=== PATIENT | female | born 1960 | race Caucasian/White ===

== ENCOUNTER 2016-10-15 17:22 | Emergency (ER) | payer BC, OTHER ==
[2016-10-15 17:30] VITALS: BP 158/88; PULSE 90; TEMP 98.1; BMI 23.0
--- NOTE | 2016-10-15 18:38 | PDOC ---
History of Present Illness - General History Source: Patient Exam Limitations: No Limitations - History of Present Illness Initial Comments: 10/15/16 18:33 CC fell on uneven sidewalk yesterday hitting face, both hands, lumbar spine and both knees; no LOC Occurred: reports: yesterday Severity: reports: moderate Pain Location: reports: back, face, lower extremity, upper extremity Method of Injury: Yes: fall Loss of Consciousness: no loss of consciousness <Edson Tapia - Last Filed: 10/15/16 18:33> <Yolanda Reilly - Last Filed: 10/15/16 22:16> - General Chief Complaint: Injury Stated Complaint: FALL/BACK PAIN/LEG PAIN Time Seen by Provider: 10/15/16 17:49 Past History - Past Medical History Asthma: Yes Diabetes: Yes HTN: Yes - Psycho/Social/Smoking Cessation Hx Anxiety: No Suicidal Ideation: No Smoking History: Current every day smoker Number of Cigarettes Smoked Daily: 20 Information on smoking cessation initiated: No Hx Alcohol Use: No Drug/Substance Use Hx: No Substance Use Type: None <Edson Tapia - Last Filed: 10/15/16 18:33> <Yolanda Reilly - Last Filed: 10/15/16 22:16> - Past Medical History Allergies/Adverse Reactions: Allergies Allergy/AdvReac Type Severity Reaction Status Date / Time No Known Allergies Allergy Verified 10/15/16 17:30 Home Medications: Ambulatory Orders Amoxicillin/Potassium Clav [Augmentin 875-125 Tablet] 1 each PO BID #14 tablet 10/15/16 Review of Systems - Review of Systems Constitutional: No: Symptoms Reported, Chills, Fever, Malaise HEENTM: Yes: Other (STS to right upper lip; with abrasion inner lip; no teeth in area) Respiratory: No: Cough Musculoskeletal: Yes: Back Pain, Joint Pain, Joint Swelling, Joint Stiffness. No: Neck Pain Integumentary: Yes: Bruising, Erythema. No: Symptoms Reported Neurological: No: Symptoms reported, Headache, Numbness <Edson Tapia - Last Filed: 10/15/16 18:33> *Physical Exam - Vital Signs Last Vital Signs Temp Pulse Resp BP Pulse Ox 98.1 F 90 20 158/88 97 10/15/16 17:27 10/15/16 17:27 10/15/16 17:27 10/15/16 17:27 10/15/16 17:27 - Physical Exam General Appearance: Yes: Appropriately Dressed HEENT: positive: Other (abrasion upper inner lip with STS, no teeth to area, FROM TMJ) Neck: positive: Supple. negative: Tender, Rigid Respiratory/Chest: positive: Lungs Clear. negative: Chest Tender, Normal Breath Sounds Gastrointestinal/Abdominal: positive: Normal Bowel Sounds. negative: Tender Extremity: positive: Other (tender to right patella; tender both hands, FROM wrists; tender midline L4-L4, no deformith) <Edson Tapia - Last Filed: 10/15/16 18:33> - Vital Signs Last Vital Signs Temp Pulse Resp BP Pulse Ox 98.1 F 90 20 158/88 97 10/15/16 17:27 10/15/16 17:27 10/15/16 17:27 10/15/16 17:27 10/15/16 17:27 <Yolanda Reilly - Last Filed: 10/15/16 22:16> ED Treatment Course - LABORATORY CBC & Chemistry Diagram: 10/15/16 18:20 - RADIOLOGY Radiology Studies Ordered: Category Date Time Status HAND- LEFT [RAD] Stat Radiology 10/15/16 18:16 Ordered HAND- RIGHT [RAD] Stat Radiology 10/15/16 18:16 Ordered KNEE 2 POS-RIGHT [RAD] Stat Radiology 10/15/16 18:16 Ordered SPINE-LUMBAR SACRAL [RAD] Stat Radiology 10/15/16 18:16 Ordered <Edson Tapia - Last Filed: 10/15/16 18:33> - LABORATORY CBC & Chemistry Diagram: 10/15/16 18:20 - ADDITIONAL ORDERS Additional order review: Laboratory Results 10/15/16 18:20 Sodium 142 Potassium 3.8 Chloride 104 Carbon Dioxide 27 Anion Gap 11 BUN 20 H Creatinine 1.0 Random Glucose 295 H Calcium 9.2 - Medications Given in the ED: ED Medications Discontinued Medications Generic Name Dose Route Start Last Admin Trade Name Freq PRN Reason Stop Dose Admin Acetaminophen/Codeine Phosphate 1 tab 10/15/16 19:00 10/15/16 19:04 Tylenol # 3 - PO 10/15/16 19:01 1 tab ONCE ONE Administration <Yolanda Reilly - Last Filed: 10/15/16 22:16> *DC/Admit/Observation/Transfer <Edson Tapia - Last Filed: 10/15/16 18:33> <Yolanda Reilly - Last Filed: 10/15/16 22:16> Diagnosis at time of Disposition: Laceration of mouth, internal Qualifiers: Encounter type: initial encounter Qualified Code(s): S01.512A - Laceration without foreign body of oral cavity, initial encounter - Discharge Dispostion Disposition: HOME Condition at time of disposition: Good - Prescriptions Prescriptions: Amoxicillin/Potassium Clav [Augmentin 875-125 Tablet] 1 each PO BID #14 tablet - Patient Instructions Additional Instructions: follow with your primary care doctor take the antibitoics as prescribed
[2016-10-15 18:48] LABS: CALCIUM 9.2 mg/dL (8.5-10.1); COCKROFT - GAULT 56.6695
[2016-10-15] MEDS ORDERED: ACETAMINOPHEN WITH CODEINE 300MG/30MG TABLET PO ONE (19:00)
[2016-10-15] MEDS ORDERED: ACETAMINOPHEN WITH CODEINE 300MG/30MG TABLET ONE (19:02)
== END 2016-10-15 22:17 | disposition home or self-care (01) ==
LOC: JERFT 17:22
DX: S01.512A Laceration without foreign body of oral cavity, initial encounter (principal); W18.39XA Other fall on same level, initial encounter; Y93.01 Activity, walking, marching and hiking; Y92.480 Sidewalk as the place of occurrence of the external cause; Y99.8 Other external cause status
CPT/HCPCS: 36415; 72100-TC; 73130-TC-LT; 73130-TC-RT; 73560-TC-RT; 80048; 99281-25

== ENCOUNTER 2017-08-07 09:05 | Emergency (ER) | payer BC, OTHER ==
[2017-08-07 09:31] VITALS: BMI 23.8
--- NOTE | 2017-08-07 10:03 | PDOC ---
History of Present Illness <Fernando Valdez - Last Filed: 08/07/17 11:08> - History of Present Illness Initial Comments: 08/07/17 10:03 57 yo F with h/o NIDDM, Chronic neuropathic pain, and asthma who presents with chest pain. For the past 2 days pt. reports sharp left sided chest pain at rest for the past 2 days occurring intermittently with no eliciting factors and resolving after seconds. Denies pain Pt. also complains of 2 days of retrosternal burning pain worse with supine positioning. Denies neck, jaw, back pain, but reports L sided axillary pain similiar to pain with prior VZV infection. Denies N/V, F/C, palpitations, José, SOB, swelling, lighteheadedness, weakness, LOC. Denies CAD/KS, stent placement, CABG. Does not recall previous stress test. Does not follow with cardiology. Tobacco use for 40+ years ( 1/2 - 1 ppd). <Yaw Salter - Last Filed: 08/07/17 16:20> - General Chief Complaint: Chest Pain Stated Complaint: CHEST PAIN Time Seen by Provider: 08/07/17 09:54 Past History <Fernando Valdez - Last Filed: 08/07/17 11:08> - Past Medical History Asthma: Yes COPD: No Diabetes: Yes (IDDM) HTN: Yes - Immunization History Immunization Up to Date: Yes - Suicide/Smoking/Psychosocial Hx Smoking History: Current every day smoker Number of Cigarettes Smoked Daily: 20 Information on smoking cessation initiated: No Hx Alcohol Use: No Drug/Substance Use Hx: No Substance Use Type: None <Yaw Salter - Last Filed: 08/07/17 16:20> - Past Medical History Allergies/Adverse Reactions: Allergies Allergy/AdvReac Type Severity Reaction Status Date / Time No Known Allergies Allergy Verified 08/07/17 09:26 Home Medications: Ambulatory Orders Amlodipine Besylate 10 mg PO DAILY 08/07/17 Atorvastatin Calcium 40 mg PO HS 08/07/17 Dapagliflozin Propanediol [Farxiga] 5 mg PO DAILY 08/07/17 Glimepiride 4 mg PO BID 08/07/17 Insulin Aspart Prot/Insuln Asp [Novolog Mix 70-30 Vial] 15 unit SQ BID 08/07/17 Losartan Potassium 50 mg PO DAILY 08/07/17 Metformin HCl 500 mg PO BID 08/07/17 Nebivolol HCl [Bystolic] 10 mg PO DAILY 08/07/17 Review of Systems - Review of Systems Comments:: 08/07/17 10:03 GENERAL/CONSTITUTIONAL: No fever or chills. No weakness. HEAD, EYES, EARS, NOSE AND THROAT: No change in vision. No ear pain or discharge. No sore throat.- CARDIOVASCULAR: + chest pain. No shortness of breath RESPIRATORY: No cough, wheezing, or hemoptysis. GASTROINTESTINAL: No nausea, vomiting, diarrhea or constipation. GENITOURINARY: No dysuria, frequency, or change in urination. MUSCULOSKELETAL: No joint or muscle swelling or pain. No neck or back pain. SKIN: No rash NEUROLOGIC: No headache, vertigo, loss of consciousness, or change in strength/ sensation. ENDOCRINE: No increased thirst. No abnormal weight change HEMATOLOGIC/LYMPHATIC: No anemia, easy bleeding, or history of blood clots. ALLERGIC/IMMUNOLOGIC: No hives or skin allergy. <Yaw Salter - Last Filed: 08/07/17 16:20> *Physical Exam - Vital Signs Last Vital Signs Temp Pulse Resp BP Pulse Ox 98.4 F 83 15 145/77 99 08/07/17 09:27 08/07/17 09:27 08/07/17 09:27 08/07/17 09:27 08/07/17 10:10 <Fernando Valdez - Last Filed: 08/07/17 11:08> - Vital Signs Last Vital Signs Temp Pulse Resp BP Pulse Ox 98.4 F 83 15 145/77 95 08/07/17 09:27 08/07/17 09:27 08/07/17 09:27 08/07/17 09:27 08/07/17 09:27 - Physical Exam Comments: 08/07/17 10:03 GENERAL: Awake, alert, and fully oriented, in no acute distress HEAD: No signs of trauma, normocephalic, atraumatic EYES: PERRLA, EOMI, sclera anicteric, conjunctiva clear ENT: Hearing grossly normal, nares patent, oropharynx clear without exudates. Moist mucosa NECK: Normal ROM, supple, no lymphadenopathy, JVD, or masses LUNGS: No distress, speaks full sentences, clear to auscultation bilaterally HEART: Regular rate and rhythm, normal S1 and S2, no murmurs, rubs or gallops, peripheral pulses normal and equal bilaterally. ABDOMEN: Soft, + Epigastria ttp. Normoactive bowel sounds. No guarding, no rebound. No masses. Neg CVA ttp. EXTREMITIES : Normal inspection, Normal range of motion, no edema. No clubbing or cyanosis. SKIN: Warm, Dry, normal turgor, no rashes or lesions noted. <Yaw Salter - Last Filed: 08/07/17 16:20> Heart Score/ECG Review - History History: Slightly suspicious - Electrocardiogram EKG: Normal - Age Age: 45-65 - Risk Factors Risk Factors Heart Score: Yes Hx Diabetes, Yes Smoking History, Yes Positive family hx of cardiac disease Based on the list above the patient has:: >/=3 risk factors or Hx atherosclerotic disease - Troponin Troponin: </= normal limit - Score Heart Score - Total: 3 <Fernando Valdez - Last Filed: 08/07/17 11:08> ED Treatment Course - LABORATORY CBC & Chemistry Diagram: 08/07/17 10:30 08/07/17 10:30 - ADDITIONAL ORDERS Additional order review: 08/07/17 10:30 RBC 5.22 H MCV 84.8 MCHC 32.5 RDW 13.8 MPV 11.9 H Neutrophils % 73.2 Lymphocytes % 19.5 Monocytes % 5.9 Eosinophils % 1.0 Basophils % 0.4 - Medications Given in the ED: ED Medications Discontinued Medications Generic Name Dose Route Start Last Admin Trade Name Freq PRN Reason Stop Dose Admin Aspirin 325 mg 08/07/17 10:33 08/07/17 10:49 Ecotrin - PO 08/07/17 10:34 325 mg ONCE ONE Administration Famotidine 20 mg in 12 mls @ 144 mls/hr 08/07/17 10:34 08/07/17 10:49 Pepcid 20 Mg/12 Ml Push IVPUSH 08/07/17 10:38 144 mls/hr ONCE ONE Administration <Fernando Valdez - Last Filed: 08/07/17 11:08> - LABORATORY CBC & Chemistry Diagram: 08/07/17 10:30 08/07/17 10:30 <Yaw Salter - Last Filed: 08/07/17 16:20> Medical Decision Making - Medical Decision Making 08/07/17 10:53 57 yo F with h/o NIDDM, Chronic neuropathic pain, and asthma who presents with sharp., non pleuritic, left sided chest pain at rest for the past 2 days occurring intermittently with no eliciting factors and resolving after seconds.Also reports 2 days of retrosternal burning pain worse with supine positioning. Denies neck, jaw, back pain, N/V, F/C, palpitations, José, SOB, swelling, lighteheadedness, weakness, LOC. Denies CAD/KS, stent placement, CABG. Does not recall previous stress test. Does not follow with cardiology. Tobacco use for 40+ years ( 1/2 - 1 ppd). Physical exam with epigastric ttp. Hemodynamically stable. Patient atypical chest pain concerning for ACS/KS given risk factors and lack of cardiology f/u. ED Course: CBC, CMP, Lipase, Cardiac Profile UA CXR, EKG 08/07/17 10:57 ASA 325 mg, Pepcid 20 IV 08/07/17 11:09 EKG: NSR with absent RONAK, STD, or TWI. Normal axis and normal interval duration. 08/07/17 11:59 WBC: 12.3 08/07/17 12:30 CMP: unremarkable 08/07/17 13:52 Trop: Neg Heart score 3. 08/07/17 15:21 CXR: No acute cardiopulm pathology 08/07/17 16:12 Repeat trop: Neg Patient is stable and denies chest pain. Return precautions and follow up discussed. <Yaw Salter - Last Filed: 08/07/17 16:20> *DC/Admit/Observation/Transfer <Fernando Valdez - Last Filed: 08/07/17 11:08> - Attestations Physician Attestion: 08/07/17 15:22 I attest to the information provided in this note. <Yaw Salter - Last Filed: 08/07/17 16:20> Diagnosis at time of Disposition: Chest pain Qualifiers: Chest pain type: unspecified Qualified Code(s): R07.9 - Chest pain, unspecified - Discharge Dispostion Condition at time of disposition: Stable - Referrals Referrals: Shawn Jean MD [Primary Care Provider] - Leonardo Brady MD [Staff Physician] - - Patient Instructions Printed Discharge Instructions: DI for Atypical Chest Pain Additional Instructions: Please return to the emergency department with any new or worsening symptoms or concerns. Please follow up with your cane weigher within one week. - Post Discharge Activity
[2017-08-07] MEDS ORDERED: ASPIRIN 325 MG ENTERIC COATED TABLET (FP) PO ONE (10:33)
[2017-08-07] MEDS ORDERED: FAMOTIDINE IV 20 MG/12 ML VIAL IVPUSH ONE (10:34)
[2017-08-07 10:45] LABS: BASO % 0.4 % (0-2.0); HEMATOCRIT 44.3 % (32.4-45.2); HEMOGLOBIN 14.4 GM/dL (10.7-15.3); LYMPH % 19.5 % (8-40); MCH 27.6 pg (25.7-33.7); MCHC 32.5 g/dl (32.0-36.0); MEAN CELL VOLUME 84.8 fl (80-96); MEAN PLT VOLUME 11.9 fl (7.5-11.1); MONO % 5.9 % (3.8-10.2); NEUT % 73.2 % (42.8-82.8); PLATELET COUNT 219 K/MM3 (134-434); RBC 5.22 M/mm3 (3.60-5.2); RDW 13.8 % (11.6-15.6); WHITE BLOOD COUNT 12.3 K/mm3 (4.0-10.0)
[2017-08-07] MEDS ORDERED: ASPIRIN 325 MG TABLET ONE (10:46)
[2017-08-07] MEDS ORDERED: FAMOTIDINE 20 MG/50 ML IVPB 20 MG/50 ML MG IVPB ONE (10:46)
--- NOTE | 2017-08-07 11:07 | PDOC ---
Attending Attestation - Resident Resident Name: Yaw Salter - ED Attending Attestation I have performed the following: I have examined & evaluated the patient, The case was reviewed & discussed with the resident, I agree w/resident's findings & plan, Exceptions are as noted - HPI HPI: 08/07/17 11:05 57y F hx of dm, neuropathic pain presents with episodic chest pain that she describes as sharp and burning, lef sided, nonpleuritic cp at rest lasting for seconds, at the same time, epigastric that is also sharp and burning, that is worse with laying down. No associated n/v, sob, berg, f/c, cough, hemptysis, palpitations, leg swelling, abd pain, n/v, diarrhea, dysuria. No rashes noted. pain is not exertional (typically starts when she is at rest as when she was watching TV last night). Pt notes this pain feels similar to when she was diagnosed with zoster in the past although there is no rash. Pt was formerly on lyrica but was d/cd due to insurance issues and then was started on gabapentin approx 2 weeks ago. Pt has also taken tramadol and ibuporfen at home with mild releieve of pain. +smoking 1/2 pack/day for 40 years GENERAL: The patient is awake, alert, and fully oriented, Nontoxic - in no acute distress. HEAD: Normocephalic, atraumatic. EYES: extraocular movements intact, sclera anicteric, conjunctiva clear. ENT: Normal voice, Moist mucous membranes. NECK: Normal range of motion, supple LUNGS: Breath sounds equal, clear to auscultation bilaterally. No wheezes, no rhonchi, no rales. HEART: Regular rate and rhythm, normal S1 and S2 without murmur, rub or gallop. ABDOMEN: Soft, mild epigastric tenderness, normoactive bowel sounds. No guarding, no rebound. . No CVA tenderness EXTREMITIES: Normal range of motion, no edema. No clubbing or cyanosis. No cords, erythema, or tenderness. NEUROLOGICAL: No facial assymetry, Normal speech, PSYCH: Normal mood, normal affect. SKIN: Warm, Dry, normal turgor, small red papules throughout torso (pt notes this is chronic, and has had it when she was a teenager) unclear cause of her pain - will r/o cardiac etiology with trops/egk ?neuropathic -? nerve inpingement? will give tramadol will reassess and if everything neg here willrefer to PMD and neurologist - Physicial Exam PE: 08/09/17 08:21 see above - Medical Decision Making 08/07/17 16:21 trop neg x 2 pt feeling improved will have her see her PMD, cards, and her neurologist
[2017-08-07 11:12] LABS: ALBUMIN 4.2 g/dl (3.4-5.0); ALK PHOS 137 U/L (45-117); ANION GAP 10 (8-16); BILIRUBIN,TOTAL 0.4 mg/dL (0.2-1.0); BLOOD UREA NITROGEN 19 mg/dL (7-18); CALCIUM 9.3 mg/dL (8.5-10.1); CHLORIDE 105 mmol/L (98-107); CO2 25 mmol/L (21-32); CREATININE 0.7 mg/dL (0.55-1.02); GLUCOSE,RANDOM 218 mg/dL (74-106); POTASSIUM 3.9 mmol/L (3.5-5.1); SGOT/AST 20 U/L (15-37); SGPT/ALT 35 U/L (12-78); SODIUM 140 mmol/L (136-145); TOT PROT 7.5 g/dl (6.4-8.2)
[2017-08-07 11:13] LABS: URINE APPEARANCE CLEAR; URINE BILIRUBIN NEGATIVE (NEGATIVE); URINE BLOOD NEGATIVE (NEGATIVE); URINE COLOR YELLOW; URINE GLUCOSE (UA) 3+ (NEGATIVE); URINE KETONE TRACE (NEGATIVE); URINE LEUK ESTERASE TRACE (NEGATIVE); URINE NITRITE NEGATIVE (NEGATIVE); URINE PROTEIN NEGATIVE (NEGATIVE); URINE UROBILINOGEN NEGATIVE mg/dL (0.2-1.0)
[2017-08-07 11:20] LABS: EPI CELLS RARE /HPF (FEW); URINE BACTERIA RARE /hpf (NONE SEEN)
[2017-08-07 11:23] LABS: INR 0.94 (0.82-1.09); PROTHROMBIN TIME (PATIENT) 10.6 SEC (9.98-11.88)
--- NOTE | 2017-08-07 11:53 | EKG ---
Test Reason : Blood Pressure : / mmHG Vent. Rate : 086 BPM Atrial Rate : 086 BPM P-R Int : 154 ms QRS Dur : 080 ms QT Int : 338 ms P-R-T Axes : 068 056 046 degrees QTc Int : 404 ms NORMAL SINUS RHYTHM POSSIBLE LEFT ATRIAL ENLARGEMENT BORDERLINE ECG WHEN COMPARED WITH ECG OF 15-JUN-2007 18:19, NO SIGNIFICANT CHANGE WAS FOUND Confirmed by MD AASHISH, YUNG ([id number]) on 08/07/2017 11:52:33 AM Referred By: Confirmed By:YUNG ZENDEJAS MD
[2017-08-07] MEDS ORDERED: traMADol HCL 50 MG TABLET PO ONE (13:31)
[2017-08-07] MEDS ORDERED: traMADol HCL 50 MG TABLET ONE (13:49)
[2017-08-07] MEDS ORDERED: MAG HYDROX/AL HYDROX/SIMETH 355 ML ORAL.SUSP PO ONE (13:52)
[2017-08-07] MEDS ORDERED: MAG HYDROX/AL HYDROX/SIMETH 30 ML UNIT-DOSE CUP ONE (13:53)
[2017-08-07 17:10] VITALS: BP 145/70; PULSE 85; TEMP 98.1
== END 2017-08-07 17:10 | disposition home or self-care (01) ==
LOC: JER 09:05
PROC: 3E033GC Introduction of Other Therapeutic Substance into Peripheral Vein, Percutaneous Approach (ICD-10-PCS; principal; 2017-08-07)
DX: R07.9 Chest pain, unspecified (principal); I10 Essential (primary) hypertension; E11.9 Type 2 diabetes mellitus without complications; Z79.4 Long term (current) use of insulin; Z79.84 Long term (current) use of oral hypoglycemic drugs; F17.210 Nicotine dependence, cigarettes, uncomplicated
CPT/HCPCS: 36415; 71045-TC; 80053; 81003; 81015; 82550; 83690; 84484; 85025; 85610; 93005; 93010; 96374; 99285-25

== ENCOUNTER 2018-02-19 06:44 | Day surgery (SDC) | payer OTHER ==
[2018-02-18 17:26] VITALS: BMI 22.4
[2018-02-19] MEDS ORDERED: BUPIVACAINE HCL/PF 0.25% (2.5MG/ML) 10 ML VIAL ONE (07:35)
[2018-02-19] MEDS ORDERED: BETAMET ACET/BETAMET NA PH 30 MG/5 ML VIAL ONE (07:35)
[2018-02-19] MEDS ORDERED: LIDOCAINE HCL 1%, 10 MG/ML (20ML VIAL) ONE (07:35)
[2018-02-19] MEDS ORDERED: MIDAZOLAM HCL 2 MG/2 ML SINGLE DOSE VIAL ONE (09:23)
[2018-02-19] MEDS ORDERED: BETAMET ACET/BETAMET NA PH 30 MG/5 ML VIAL IJ ONE ×2 (09:36)
[2018-02-19] MEDS ORDERED: IOHEXOL 180 MG/1 ML ML IJ ONE ×2 (09:36)
[2018-02-19] MEDS ORDERED: LIDOCAINE HCL 1% PRESERVATIVE FREE - 30ML VIAL IJ ONE (09:36)
[2018-02-19] MEDS ORDERED: BUPIVACAINE HCL/PF 0.25% (2.5MG/ML) 10 ML VIAL IJ ONE ×2 (09:36)
[2018-02-19] MEDS ORDERED: ACETAMINOPHEN 325 MG TABLET (FP) ONE (10:17)
[2018-02-19] MEDS ORDERED: ACETAMINOPHEN 325 MG TABLET (FP) PO ONE (10:18)
[2018-02-19 12:46] VITALS: PULSE 70
[2018-02-19 18:11] VITALS: TEMP 98
[2018-02-19 18:15] VITALS: BP 125/70
--- NOTE | 2018-02-25 19:43 | PROC ---
Procedure Note Procedure: Date of service:02/19/2018 Preoperative Diagnosis: Low back pain and lumbar radiculopathy on Left Postoperative Diagnosis: Same Procedure Performed: Lumbar Epidural Steroid Injection (LESI) on Left L4-5 with dye under Fluoroscopy Anesthesia: Local / MAC Anesthesiologist: Procedure: I discussed with the patient in detail about the risks, benefits, and alternatives to treatment not only limited to infection, headache, numbness , weakness, and injury to nerves, blood vessels and muscles. The patient understood, agreed and signed the written consent. The patient was placed in the prone position with the head, abdomen and legs supported with the pillows. The lumbosacral area was prepped and draped with Betadine times three in a sterile fashion. Lumbar vertebrae were identified under the C-arm. At L4-5 level on the Left side, 3 ml of 1 % Lidocaine was infiltrated into the skin and subcutaneous tissue. A 3 inch, #20 gauge Tuohy needle was advanced to the epidural space with loss of resistance technique under fluoroscopic guidance. Aspiration was negative for cerebrospinal fluid and blood. 2ml of Omnipaque ( radio-opaque dye) was injected to confirm the tip of the needle into epidural space and spread of dye. There was no CSF or vascular spread. The spread of dye was noted cranially and caudally on epidurogram. Aspiration was done again which was negative. A solution of 2.5 ml of Celestone, 2.5 ml of 0.25% Marcaine and a total of 5 ml was injected slowly. While Tuohy needle was withdrawn 2.0 ml of 1 % Lidocaine was infiltrated. Bleeding was checked. Betadine was wiped off. A sterile bandage was placed. The patient tolerated the procedure well. There were no immediate complications. The patient was transferred to the recovery room. The patient was observed for some time and discharged as per ASU criteria. The patient was told to apply ice at the injection site. Follow up appointment was given and also call my office at [phone]. If there is any problem, call my office or report to Emergency Room. Gerardo Harman M.D.
== END 2018-02-19 13:30 | disposition home or self-care (01) ==
LOC: JASU-SURG 06:44
PROVIDERS: ATTEND Physical Medicine & Rehabilitation
PROC: 3E0R33Z Introduction of Anti-inflammatory into Spinal Canal, Percutaneous Approach (ICD-10-PCS; 2018-02-19)
PROC: B01BYZZ Fluoroscopy of Spinal Cord using Other Contrast (ICD-10-PCS; 2018-02-19)
PROC: 3E0R3BZ Introduction of Anesthetic Agent into Spinal Canal, Percutaneous Approach (ICD-10-PCS; principal; 2018-02-19 08:30)
DX: M54.16 Radiculopathy, lumbar region (principal); M54.5 Low back pain; E11.9 Type 2 diabetes mellitus without complications; Z79.84 Long term (current) use of oral hypoglycemic drugs; I10 Essential (primary) hypertension
CPT/HCPCS: 76000-TC-FY; 82962

== ENCOUNTER 2019-06-16 13:03 | Emergency (ER) | payer OTHER ==
[2019-06-16 13:13] VITALS: BP 160/77; PULSE 86; TEMP 97.7; BMI 26.4
--- NOTE | 2019-06-16 14:24 | PDOC ---
History of Present Illness - General Chief Complaint: Blurry Vision Stated Complaint: BLURRY/DOUBLE VISION Time Seen by Provider: 06/16/19 14:00 - History of Present Illness Initial Comments: Ashanti Johnson is a 59yo woman with a PMH of IDDM, HTN, HLD who presents with double vision and blurry vision since yesterday, also reporting right frontal headache since yesterday evening. She says that she did not think much of the blurry or double vision when it started in the afternoon yesterday as she recently saw an instrumentation controls engineer for her diabetic eye exam about 2 weeks ago, and she was told everything was fine. However, she was having difficulty watching TV due to double vision, and she developed a right frontal headache, around her right eye, in the evening yesterday. She states that the headache worsened today. When she had no improvement in her vision, she decided to come for evaluation. Ms Johnson denies any fevers/chills, focal weakness, numbness, LOC, head injury, difficulty speaking, confusion/AMS, changes in hearing, or other recent neurological symptoms. She reports peripheral neuropathy due to her diabetes, but this is unchanged. She wears reading glasses at baseline and is unsure whether her vision has changed in either eye. Past History - Past Medical History Allergies/Adverse Reactions: Allergies Allergy/AdvReac Type Severity Reaction Status Date / Time No Known Allergies Allergy Verified 06/16/19 13:14 Home Medications: Ambulatory Orders Amlodipine Besylate 10 mg PO DAILY 08/07/17 Atorvastatin Calcium 40 mg PO DAILY 08/07/17 Glimepiride 4 mg PO BID 08/07/17 Losartan Potassium 50 mg PO DAILY 08/07/17 metFORMIN HCL [Metformin HCl] 500 mg PO BID 08/07/17 Baclofen 10 mg PO BID 02/18/18 Cyclobenzaprine HCl [Flexeril -] 10 mg PO BID 02/18/18 Insulin Aspart Prot/Insuln Asp [Novolog Mix 70-30 Flexpen Syrn] 30 unit SQ HS Pregabalin [Lyrica] 150 mg PO TID 02/18/18 Anemia: No Asthma: Yes Cancer: No Cardiac Disorders: No CVA: No COPD: No CHF: No Dementia: No Diabetes: Yes (IDDM) GI Disorders: No Disorders: No HTN: Yes Hypercholesterolemia: No Liver Disease: No Seizures: No Thyroid Disease: No - Immunization History Immunization Up to Date: Yes - Psycho Social/Smoking Cessation Hx Smoking History: Current some day smoker Number of Cigarettes Smoked Daily: 20 Information on smoking cessation initiated: No 'Breaking Loose' booklet given: 02/18/18 Hx Alcohol Use: No Drug/Substance Use Hx: No Substance Use Type: None Review of Systems - Review of Systems Comments:: General: No fevers, no chills, no weight or appetite change, no malaise HEENT: See HPI. No changes in hearing, no congestion, no sore throat CV: No chest pain, no palpitations, no LE edema Pulm: No SOB, no cough, no wheezing GI: No nausea or vomiting, no change in bowel habits, no melena : No frequency, no urgency, no dysuria Musc: No back pain, no joint swelling, no recent injury Skin: No rash, no lesions, no erythema Endo: No excessive thirst, no heat/cold intolerance Heme: No unusual bruising or bleeding, no swollen glands Neuro: No syncope, no numbness/tingling, no focal weakness Vasc: No claudication Psych: No recent change in mood, no SI or HI *Physical Exam - Vital Signs Last Vital Signs Temp Pulse Resp BP Pulse Ox 97.7 F 86 20 160/77 99 06/16/19 13:09 06/16/19 13:09 06/16/19 13:09 06/16/19 13:09 06/16/19 13:09 - Physical Exam General: Comfortable, no acute distress HEENT: PERRL, right eye does not move right of midline, MMM, voice normal, normal neck ROM Cards: RRR, no murmur appreciated Pulm: Comfortable on room air, clear to auscultation bilaterally Abd: Soft, nontender, nondistended Ext: Atraumatic. No LE edema. ROM intact. Strength 5/5 and equal bilaterally Vasc: Extremities WWP. Neuro: A&Ox3, face symmetric, rt eye does not move right/temporal to midline, normal speech, motor/sensory grossly intact and symmetric Psych: Mood appropriate to situation ED Treatment Course - LABORATORY CBC & Chemistry Diagram: 06/16/19 14:50 06/16/19 14:50 Medical Decision Making - Medical Decision Making 06/16/19 14:22 Ashanti Johnson is a 59yo woman with a PMH of poorly controlled IDDM, HTN, HLD who presents with double vision and blurry vision since yesterday, also reporting right frontal headache since yesterday evening. - Isolated CN6 palsy vs CVA. Has been 24 hours, no code hedrick - No red flag symptoms including fever, additional focal neuro deficits, vomiting - Stroke workup - Neuro consult after CT head completed. May need additional evaluation or imaging 06/16/19 15:46 - Acetaminophen for GOODWIN 06/16/19 16:29 - CT w/ moderate periventricular microvascular changes. No infarct or acute abnormalities noted - Will talk to admitting physician, neurology regarding admission vs outpatient follow up 06/16/19 16:34 - Patient requesting Dr Franks for neurology 06/16/19 17:18 - Spoke to Dr Franks. Pt may follow up as an outpatient. Should see her PMD for improved glycemic control - Pt updated. Eye patch placed over right eye. Pt has an ophthalmology appointment on Sunday. Will call neuro tomorrow to schedule appointment. Strongly advised to make an appointment with her primary doctor to discuss her DM meds. Discussed with Dr Nathan Rodriguez PGY2 Discharge - Discharge Information Problems reviewed: Yes Clinical Impression/Diagnosis: Sixth [abducent] nerve palsy, right eye Condition: Stable Disposition: HOME - Admission No - Follow up/Referral Referrals: Dereck Franks MD [Staff Physician] - Shawn Jean MD [Primary Care Provider] - - Patient Discharge Instructions Patient Printed Discharge Instructions: DI for Double Vision Additional Instructions: you should follow up with DR Franks, nuerologist. call to schedule appointment to be seen at the earliest available. see referral information for phone number and call to schedule. you should wear the eye patch. until you follow up . - Post Discharge Activity
[2019-06-16] MEDS ORDERED: SODIUM CHLORIDE 1,000 ML IV SCH (14:45)
[2019-06-16] MEDS ORDERED: ACETAMINOPHEN 1000 MG/100 ML VIAL (NON FORMULARY) IVPB ONE (15:12)
[2019-06-16] MEDS ORDERED: ACETAMINOPHEN INJECTION 100 ML IVPB ONE (15:16)
[2019-06-16 15:24] LABS: BASO % 0.4 % (0-2.0); EOS % 1.3 % (0-4.5); HEMATOCRIT 43.3 % (32.4-45.2); HEMOGLOBIN 14.1 GM/dL (10.7-15.3); LYMPH % 19.4 % (8-40); MCHC 32.4 g/dl (32.0-36.0); MEAN CELL VOLUME 86.3 fl (80-96); MEAN PLT VOLUME 11.8 fl (7.5-11.1); MONO % 6.7 % (3.8-10.2); NEUT % 72.2 % (42.8-82.8); PLATELET COUNT 223 K/MM3 (134-434); RBC 5.02 M/mm3 (3.60-5.2); RDW 14.8 % (11.6-15.6); WHITE BLOOD COUNT 12.4 K/mm3 (4.0-10.0)
[2019-06-16 15:54] LABS: ALBUMIN 3.7 g/dl (3.4-5.0); ALK PHOS 114 U/L (45-117); ANION GAP 10 MMOL/L (8-16); BILIRUBIN,TOTAL 0.4 mg/dL (0.2-1); BLOOD UREA NITROGEN 17.6 mg/dL (7-18); CALCIUM 10.2 mg/dL (8.5-10.1); CHLORIDE 105 mmol/L (98-107); CO2 27 mmol/L (21-32); CREATININE 0.7 mg/dL (0.55-1.3); GLUCOSE,RANDOM 174 mg/dL (74-106); POTASSIUM 4.3 mmol/L (3.5-5.1); SGOT/AST 23 U/L (15-37); SGPT/ALT 34 U/L (13-61); SODIUM 143 mmol/L (136-145); TOT PROT 7.3 g/dl (6.4-8.2)
[2019-06-16 15:55] LABS: INR 0.92 (0.83-1.09); PROTHROMBIN TIME (PATIENT) 10.8 SEC (9.7-13.0)
[2019-06-16 15:58] LABS: ACTIVATED PTT 33.3 SECONDS (25.2-36.5)
[2019-06-16 16:36] LABS: HDL CHOLESTEROL 36 mg/dL (40-60); LDL CHOLESTEROL (ONLY SJRH) 87 mg/dL (5-100); TRIGLYCERIDES 325 mg/dL (0-150)
--- NOTE | 2019-06-16 17:10 | PDOC ---
Attending Attestation - Resident Resident Name: OsitolindaAleja - ED Attending Attestation I have performed the following: I have examined & evaluated the patient, The case was reviewed & discussed with the resident, I agree w/resident's findings & plan, Exceptions are as noted - HPI HPI: 06/16/19 17:06 59-year-old female history of COPD tobacco use hypertension hyperlipidemia diabetes peripheral neuropathy here today complaining of blurry vision and diplopia. Patient states symptoms started yesterday she states it seems to be blurry in the left eye however she does have occasional diplopia is also had intermittent headache in the right frontal region. Did take some Tylenol at home which relieved her symptoms denies any fevers chills no nausea no vomiting no vertigo. No focal weakness numbness or tingling that is new however she does have chronic toe numbness - Physicial Exam PE: 06/16/19 17:07 Awake alert no acute distress heart is regular without murmurs rubs or gallops lungs are clear bilaterally abdomen soft nontender extremities are warm well perfused. Patient has 5 out of 5 bilateral upper and lower extremity strength strength. Sensation is intact grossly to light touch throughout. Cranial nerves II through XII are intact except for the right lateral rectus cranial nerve which shows a palsy when looking to the right. Visual visual gonzales are intact speech is clear - Medical Decision Making 06/16/19 17:09 59-year-old female history of COPD hypertension hyperlipidemia diabetes peripheral neuropathy here with right lateral rectus palsy. Differential includes mass, stroke, peripheral neuropathy. Plan CT head CBC CMP. CT head is negative discussed with Dr. Franks as the patient requesting a new neurologist states he will see the patient as an outpatient within the week recommended a patch over the bad eye to help with diplopia labs are otherwise unremarkable discharged home Heart Score/ECG Review #1 General ECG Interpretation: Sinus Rhythm, Normal Rate (77), Normal Intervals, No acute ischemic changes
--- NOTE | 2019-06-17 09:07 | EKG ---
Test Reason : Blood Pressure : / mmHG Vent. Rate : 077 BPM Atrial Rate : 077 BPM P-R Int : 160 ms QRS Dur : 072 ms QT Int : 360 ms P-R-T Axes : 074 064 064 degrees QTc Int : 407 ms NORMAL SINUS RHYTHM NORMAL ECG WHEN COMPARED WITH ECG OF 07-AUG-2017 09:17, NO SIGNIFICANT CHANGE WAS FOUND Confirmed by Eulalio Ramirez MD ([id number]) on 06/17/2019 9:07:07 AM Referred By: Confirmed By:Eulalio Ramirez MD
== END 2019-06-16 18:26 | disposition home or self-care (01) ==
LOC: JER 13:03
PROC: 3E033NZ Introduction of Analgesics, Hypnotics, Sedatives into Peripheral Vein, Percutaneous Approach (ICD-10-PCS; principal; 2019-06-16)
DX: H49.20 Sixth [abducent] nerve palsy, unspecified eye (principal); E10.9 Type 1 diabetes mellitus without complications; Z79.4 Long term (current) use of insulin; I10 Essential (primary) hypertension; E78.5 Hyperlipidemia, unspecified
CPT/HCPCS: 36415; 70450-TC; 71046-TC-FY; 80053; 82465; 82550; 83718; 83721; 84478; 84484; 85025; 85610; 85730; 86850; 86900; 86901; 93005; 93010; 96374; 99283-25; J0131; J7030

== ENCOUNTER 2019-08-05 08:09 | Day surgery (SDC) | payer OTHER ==
[2019-08-04 09:28] VITALS: BMI 26.4
[2019-08-05 08:44] LABS: BASO % 0.3 % (0-2.0); EOS % 1.1 % (0-4.5); HEMATOCRIT 40.6 % (32.4-45.2); HEMOGLOBIN 13.1 GM/dL (10.7-15.3); LYMPH % 31.4 % (8-40); MCH 27.5 pg (25.7-33.7); MCHC 32.2 g/dl (32.0-36.0); MEAN CELL VOLUME 85.3 fl (80-96); MEAN PLT VOLUME 10.9 fl (7.5-11.1); NEUT % 58.2 % (42.8-82.8); PLATELET COUNT 211 K/MM3 (134-434); RBC 4.76 M/mm3 (3.60-5.2); RDW 13.8 % (11.6-15.6); WHITE BLOOD COUNT 8.5 K/mm3 (4.0-10.0)
[2019-08-05 09:13] LABS: INR 0.95 (0.83-1.09); PROTHROMBIN TIME (PATIENT) 11.2 SEC (9.7-13.0)
[2019-08-05] MEDS ORDERED: ACETAMINOPHEN 325 MG TABLET (FP) PO ONE (11:20)
[2019-08-05] MEDS ORDERED: ACETAMINOPHEN 325 MG TABLET (FP) ONE (11:23)
[2019-08-05 12:29] LABS: BF GLUCOSE (CSF ONLY) 134 mg/dL (40-70)
[2019-08-05 13:00] LABS: CSF APPEARANCE CLEAR; CSF COLOR COLORLESS; CSF WBC 1
[2019-08-05 15:37] VITALS: TEMP 98
[2019-08-05 15:42] VITALS: BP 146/76; PULSE 67
[2019-08-07 14:08] LABS: CSF IGG INDEX 0.5 (0.0-0.7); IGG QN CSF 5.2 mg/dL (0.0-8.6); IGG/ALB RATIO CSF 0.1 (0.00-0.25)
== END 2019-08-05 15:30 | disposition home or self-care (01) ==
LOC: JRADIR 08:09
PROVIDERS: ATTEND Psychiatry & Neurology Neurology
PROC: 009U3ZZ Drainage of Spinal Canal, Percutaneous Approach (ICD-10-PCS; principal; 2019-08-05)
DX: G35 Multiple sclerosis (principal); I10 Essential (primary) hypertension; E78.5 Hyperlipidemia, unspecified; E11.9 Type 2 diabetes mellitus without complications
CPT/HCPCS: 36415; 62272; 76098-TC-FY; 77002-TC-FY; 82784; 82787; 82945; 83873; 84157; 85025; 85610; 87899

== ENCOUNTER 2020-02-25 11:42 | Emergency (ER) | payer OTHER ==
[2020-02-25 11:47] VITALS: TEMP 98.3; BMI 26.4
[2020-02-25] MEDS ORDERED: ONDANSETRON 4 MG/2 ML VIAL IVPUSH ONE (12:28)
--- NOTE | 2020-02-25 12:37 | PDOC ---
Documentation entered by Rhina Wilkinson SCRIBE, acting as scribe for Augustina Evans MD. Augustina Evans MD: This documentation has been prepared by the asheribeMinh Ana, SCRIBE, under my direction and personally reviewed by me in its entirety. I confirm that the documentation accurately reflects all work, treatment, procedures, and medical decision making performed by me. History of Present Illness - General Chief Complaint: Hematuria Stated Complaint: HEMATURIA Time Seen by Provider: 02/25/20 11:52 History Source: Patient Exam Limitations: No Limitations - History of Present Illness Initial Comments: 02/25/20 12:02 Patient is a 60 year old female with a significant past medical history of previous hysterectomy, COPD, tobacco use, hypertension, hyperlipidemia, diabetes, peripheral neuropathy, and kidney stones who presents to the ED with hematuria. Patient stated she has been in pain and passing clots nonstop, said she "was on the toilet bowl for 3 hours". Patient reports she current feels nervous and nauseous. also c/o vomiting yesterday. she seen in ED for same thing 02/19, evaluated for vaginal bleeding/ hematuria. unsure at that time if partial or complete hysterectomy and blood at cervical os seen on exam. found to have complete hysterectomy on ct, cervix enlarged, but 8 mm left uvj . was dc to home to follow up with dr apple, appointment scheduled for today, but came to ER due to worsening sxs. also states was scheduled for surgery with helen 03/01/20. Patient denies: dizziness or any other related symptoms. Allergies: NKDA 02/25/20 12:31 Past History - Medical History Allergies/Adverse Reactions: Allergies Allergy/AdvReac Type Severity Reaction Status Date / Time No Known Allergies Allergy Verified 02/25/20 11:44 Home Medications: Ambulatory Orders Amlodipine Besylate 10 mg PO DAILY 08/07/17 Atorvastatin Calcium 40 mg PO HS 08/07/17 Glimepiride 4 mg PO DAILY 08/07/17 Losartan Potassium 50 mg PO DAILY 08/07/17 metFORMIN HCL [Metformin HCl] 500 mg PO DAILY 08/07/17 Atenolol [Tenormin] 50 mg PO BID 08/04/19 Duloxetine HCl 40 mg PO DAILY 08/04/19 Sulfamethoxazole/Trimethoprim [Bactrim Ds -] 1 tab PO BID #14 tablet 02/20/20 Tamsulosin HCl 0.4 mg PO DAILY #7 capsule 02/20/20 Insulin Glargine,Hum.rec.anlog [Morales Caldera] 40 unit SQ DAILY 02/25/20 Insulin Lispro Protamin/Lispro [Insulin Lispro Mix 75-25 Kwkpn] 15 unit SQ BID 02/25/20 Nitrofurantoin Monohyd/M-Cryst [Macrobid -] 100 mg PO BID 02/25/20 traMADol HCL 50 mg PO DAILY PRN 02/25/20 Anemia: No Asthma: Yes Cancer: No Cardiac Disorders: No CVA: No COPD: No CHF: No Dementia: No Diabetes: Yes (IDDM) GI Disorders: No Disorders: No HTN: Yes Hypercholesterolemia: Yes Liver Disease: No Seizures: No Thyroid Disease: No - Immunization History Immunization Up to Date: No - Psycho-Social/Smoking History Smoking History: Current every day smoker Number of Cigarettes Smoked Daily: 20 Information on smoking cessation initiated: No 'Breaking Loose' booklet given: 08/04/19 - Substance Abuse Hx (Audit-C & DAST Scrn) How often the patient has a drink containing alcohol: Never Score: In Men: 4 or > Positive; In Women: 3 or > Positive: 0 Screen Result (Pos requires Nsg. Audit-10AR): Negative In the last yr the pt used illegal drug/Rx for NonMed reason: No Score: Yes response is considered Positive: 0 Screen Result (Positive result requires Nsg. DAST-10): Negative Review of Systems - Review of Systems Constitutional: No: Chills, Diaphoresis HEENTM: No: Eye Pain Respiratory: No: Cough, Orthopnea, Stridor ABD/GI: Yes: Nausea, Vomiting : Yes: Hematuria, Other (vaginal bleeding.) Integumentary: Yes: Other Neurological: Yes: Dizziness, Other Psychiatric: Yes: Anxiety Hematologic/Lymphatic: Yes: Blood Clots, Other (h/o heavy periods/ en dometriosis) All Other Systems: Reviewed and Negative *Physical Exam - Vital Signs Last Vital Signs Temp Pulse Resp BP Pulse Ox 98.3 F 114 H 20 175/92 H 100 02/25/20 11:44 02/25/20 11:44 02/25/20 11:44 02/25/20 11:44 02/25/20 11:44 - Physical Exam 02/25/20 12:35 Patient patient is awake alert anxious appearing mild pallor lungs are clear bilaterally heart is regular tachycardia no murmurs rubs or gallops abdomen is soft nontender exam demonstrates a large blood in the vaginal vault unable to visualize cervix due to the bleeding there is noted to be blood in her vaginal pad in her clothing extremities are warm and well-perfused skin is warm and dry patient is awake alert and oriented x3 ED Treatment Course - LABORATORY CBC & Chemistry Diagram: 02/25/20 Unknown 02/25/20 Unknown Medical Decision Making - Medical Decision Making 02/25/20 12:36 6-year-old female history of hysterectomy due to endometriosis recently diagnos ed UVJ calculi here today with worsening hematuria/vaginal bleeding. In addition to feeling lightheaded and nauseous with vomiting. Differential diagnosis includes blood in the vaginal vault secondary to pooling from hematuria versus bleeding from the cervix which is left intact on my pelvic exam unable to differentiate where the blood is originating. Will place Escobar catheter to evaluate the origin of the bleeding most likely hematuria secondary to her large stone. Due to the fact the patient is tachycardic we will repeat CBC CMP coags and a type and screen for significant blood loss should be given Zofran for her symptoms like to place a call to Dr. Stockton urology for definitive management 02/25/20 15:53 pt esocbar placed. urine in escobar clear. ua sent, shows microspopic hematuria. pt with persistant vaginal bleeding on pelvic exam. likley from retained uterine tissue post hysterectomy or cervical pathology. consulted dr mixon who evaluated pt in ED. pt will likmaria del rosario require further referral to swimmer/ onc at [place]. will see dr mixon this sunday in 48 hours. bleeding has resolved slightly. rpt cbc sent, pending. focused ED sono performed, mild left hydronephrosis. bladder nondistended. see reports for full report. plan d/w dr apple, states pt could still have stone retrieval on the of this month. covid swab to be sent today. will dc home. minda bell. 02/25/20 16:49 rpt cbc hgb increased. will dc home for close followup. covid swab sent for stone retrieval 03/01 Discharge - Discharge Information Problems reviewed: Yes Clinical Impression/Diagnosis: Vaginal bleeding, Cervix abnormality, Renal stone Condition: Improved Disposition: HOME - Admission No - Follow up/Referral Referrals: Shawn Jean MD [Primary Care Provider] - Chato Apple MD [Staff Physician] - Marisa Mixon MD [Staff Physician] - - Patient Discharge Instructions Patient Printed Discharge Instructions: Kidney Stones -- Adult, DI for Vaginal Bleeding Additional Instructions: you should follow up with DR apple on 03/01 as previously arranged. you should also follow up with DR Mixon, gynecology this monday 02/26, call today or tomrrow to confirm time. return for any worsening bleeding. dizziness, chest pain shortness of breath or any concerns. - Post Discharge Activity
[2020-02-25 12:38] LABS: BASO % 0.5 % (0-2.0); EOS % 1.2 % (0-4.5); HEMATOCRIT 35.6 % (32.4-45.2); HEMOGLOBIN 11.7 GM/dL (10.7-15.3); LYMPH % 20.4 % (8-40); MCH 27.4 pg (25.7-33.7); MCHC 32.7 g/dl (32.0-36.0); MEAN CELL VOLUME 83.8 fl (80-96); MEAN PLT VOLUME 10.9 fl (7.5-11.1); MONO % 7.7 % (3.8-10.2); NEUT % 70.2 % (42.8-82.8); PLATELET COUNT 225 K/MM3 (134-434); RBC 4.25 M/mm3 (3.60-5.2); WHITE BLOOD COUNT 9.8 K/mm3 (4.0-10.0)
[2020-02-25 12:45] LABS: INR 0.93 (0.83-1.09)
[2020-02-25 13:25] LABS: ALBUMIN 3.8 g/dl (3.4-5.0); BILIRUBIN,TOTAL 0.3 mg/dL (0.2-1); BLOOD UREA NITROGEN 17.1 mg/dL (7-18); CALCIUM 9.3 mg/dL (8.5-10.1); CREATININE 0.8 mg/dL (0.55-1.3); POTASSIUM 3.9 mmol/L (3.5-5.1)
[2020-02-25 13:58] LABS: URINE APPEARANCE CLEAR; URINE BILIRUBIN NEGATIVE (NEGATIVE); URINE COLOR YELLOW; URINE GLUCOSE (UA) NEGATIVE (NEGATIVE); URINE KETONE NEGATIVE (NEGATIVE)
[2020-02-25 13:59] LABS: EPI CELLS 11 /uL (0-25.1); HYALINE CASTS 3 /uL (0-3.1); URINE BACTERIA 83 /uL (0-1359); URINE LEUK ESTERASE NEGATIVE (NEGATIVE); URINE NITRITE NEGATIVE (NEGATIVE); URINE PROTEIN 1+ (NEGATIVE); URINE RBC 326 /uL (0-23.9); URINE UROBILINOGEN 0.2 mg/dL (0.2-1.0); URINE WBC 17 /uL (0-25.8)
--- NOTE | 2020-02-25 15:53 | CONSULT ---
Consult Consult Specialty:: OBGYN - History of Present Illness Chief Complaint: Vaginal Bleeding History of Present Illness: 60yo F here with vaginal bleeding, heavily x 1 day Seen in ER several days ago for hematuria, diagnosed with kidney stone Noted today she felt lower abdominal discomfort and passage of a clot. Sat on the toilet for several hours, with bleeding. History of supracervical hysterectomy, likely BSO in 2002 for endometriosis. Notes she had an abnormal pap smear ~5 years ago, was unable to tolerate colposcopy Since that time did not follow up for any AIR QUALITY SPECIALIST care. Has not been able to tolerate pelvic exams well since surgery, some discomfort with intercourse as well. No bleeding though since hysterectomy - Past Medical History AVIATION NEUROPSYCHOLOGIST: No: Alzheimer's, CVA, Dementia, Migraine, Multiple Sclerosis, Peripheral Neuropathy, Parkinson's, Seizure, Syncope, TIA, Vertigo, Other Cardio/Vascular: No: AFIB, Aneurysm, Aortic Insufficiency, Aortic Stenosis, CAD, CHF, Deep Vein Thrombosis, HTN, Hyperlipdemia, [place], Mitral Insufficiency, Mitral Stenosis, Murmur, Pulmonary Hypertension, Other Pulmonary: No: Asthma, Bronchitis, Cancer, COPD, O2 Dependent, Pneumonia, Previously Intubated, Pulmonary Embolus, Pulmonary Fibrosis, Sleep Apnea, Other Gastrointestinal: No: Ascites, Cancer, Constipation, Crohn's Disease, Diverticulitis, Diverticulosis, Esophageal Varices, Gastritis, GERD, GI Bleed, Hemorrhoids, Hiatal Hernia, Inflamatory Bowel Disease, Irritable Bowel Disease, Pancreatitis, Peptic Ulcer Disease, Ulcerative Colitis, Other Renal/: Yes: Renal Calculi ...LMP Comment: 2002 ...: No Heme/Onc: No: Anemia, B12 Deficiency, Bleeding Disorder, Cancer, Current Chemotherapy, Current Radiation Therapy, Hemochromatosis, Hypercoaguable State, Myeloproliferative Synd, Sickle Cell Disease, Sickle Cell Trait, Thrombocytopenia, Other - Alcohol/Substance Use Hx Alcohol Use: No - Smoking History Smoking history: Current every day smoker Aproximately how many cigarettes per day: 20 Home Medications - Allergies Allergies/Adverse Reactions: Allergies Allergy/AdvReac Type Severity Reaction Status Date / Time No Known Allergies Allergy Verified 02/25/20 11:44 - Home Medications Home Medications: Ambulatory Orders Amlodipine Besylate 10 mg PO DAILY 08/07/17 Atorvastatin Calcium 40 mg PO HS 08/07/17 Glimepiride 4 mg PO DAILY 08/07/17 Losartan Potassium 50 mg PO DAILY 08/07/17 metFORMIN HCL [Metformin HCl] 500 mg PO DAILY 08/07/17 Atenolol [Tenormin] 50 mg PO BID 08/04/19 Duloxetine HCl 40 mg PO DAILY 08/04/19 Sulfamethoxazole/Trimethoprim [Bactrim Ds -] 1 tab PO BID #14 tablet 02/20/20 Tamsulosin HCl 0.4 mg PO DAILY #7 capsule 02/20/20 Insulin Glargine,Hum.rec.anlog [Toujeo Solostar] 40 unit SQ DAILY 02/25/20 Insulin Lispro Protamin/Lispro [Insulin Lispro Mix 75-25 Kwkpn] 15 unit SQ BID 02/25/20 Nitrofurantoin Monohyd/M-Cryst [Macrobid -] 100 mg PO BID 02/25/20 traMADol HCL 50 mg PO DAILY PRN 02/25/20 Physical Exam Vital Signs: Vital Signs Temperature 98.3 F 02/25/20 11:44 Pulse Rate 90 02/25/20 13:02 Respiratory Rate 18 02/25/20 13:02 Blood Pressure 149/66 02/25/20 13:02 O2 Sat by Pulse Oximetry (%) 98 02/25/20 13:02 Constitutional: Yes: Well Nourished, No Distress, Calm Renal/: Yes: Vaginal Bleeding (speculum exam shows small amount of BRB in the vaginal vault coming from the cervix, no active or brisk bleeding seen. Bimanual exam, stenotic vaginal cuff/cervix, tender to palpation, no adnexal masses appreciated, uterus absent) Edema: No ...Motor Strength: WNL Psychiatric: Yes: WNL Labs: CBC, BMP 02/25/20 Unknown 02/25/20 Unknown Assessment/Plan 60yo F here with vaginal bleeding Labs reviewed, H/H acceptable CT scan reviewed, prominent cervix noted; absent uterus/adnexal masses. Pt unable to tolerate much of an exam here, but bleeding is light now, should be stable for discharge home from a AIR QUALITY SPECIALIST standpoint Recommended repeat evaluation in my office on 02/26 and then we can refer her to [facility] for further evaluation, possible trachelectomy as per their discretion. Discussed with patient that if she needs surgery for cervical removal, must be done with Oncology, which is not available at this hospital. Given that she is stable and that her bleeding has decreased, no need for immediate transfer to [facility] at this time. All questions answered Will see her in my office on 02/26 M. MD Oral
[2020-02-25 16:20] LABS: BASO % 0.5 % (0-2.0); EOS % 1.5 % (0-4.5); HEMATOCRIT 33.1 % (32.4-45.2); HEMOGLOBIN 10.6 GM/dL (10.7-15.3); LYMPH % 22.9 % (8-40); MCH 27.4 pg (25.7-33.7); MCHC 32.1 g/dl (32.0-36.0); MEAN CELL VOLUME 85.4 fl (80-96); MEAN PLT VOLUME 11.1 fl (7.5-11.1); MONO % 6.7 % (3.8-10.2); NEUT % 68.4 % (42.8-82.8); PLATELET COUNT 194 K/MM3 (134-434); RBC 3.87 M/mm3 (3.60-5.2); RDW 14.9 % (11.6-15.6); WHITE BLOOD COUNT 9.9 K/mm3 (4.0-10.0)
[2020-02-25 17:16] VITALS: BP 148/75; PULSE 83
--- NOTE | 2020-02-26 16:56 | EKG ---
Test Reason : Blood Pressure : / mmHG Vent. Rate : 094 BPM Atrial Rate : 094 BPM P-R Int : 148 ms QRS Dur : 076 ms QT Int : 338 ms P-R-T Axes : 077 068 060 degrees QTc Int : 422 ms NORMAL SINUS RHYTHM NORMAL ECG WHEN COMPARED WITH ECG OF 20-FEB-2020 18:32, NO SIGNIFICANT CHANGE WAS FOUND Confirmed by TATIANA GRULLON MD ([id number]) on 02/26/2020 4:56:28 PM Referred By: Confirmed By:TATIANA GRULLON MD
== END 2020-02-25 17:14 | disposition home or self-care (01) ==
LOC: JER 11:42
PROC: 3E033NZ Introduction of Analgesics, Hypnotics, Sedatives into Peripheral Vein, Percutaneous Approach (ICD-10-PCS; principal; 2020-02-25)
DX: N93.9 Abnormal uterine and vaginal bleeding, unspecified (principal); N20.0 Calculus of kidney; R87.619 Unspecified abnormal cytological findings in specimens from cervix uteri
CPT/HCPCS: 36415; 76775; 80053; 81003; 83605; 85025; 85610; 86850; 86900; 86901; 87086; 93005; 93010; 99284-25; U0003

== ENCOUNTER 2020-03-01 05:09 | Day surgery (SDC) | payer OTHER ==
[2020-02-26 17:03] VITALS: BMI 26.4
--- NOTE | 2020-03-01 11:31 | HP ---
History & Physical Update - History History: No Change - Physical Physical: No Change - Assessment Assessment: No Change - Plan Plan: No Change
--- NOTE | 2020-03-01 11:35 | OP ---
Operative Note - Note: Operative Date: 03/01/20 Pre-Operative Diagnosis: L ureteral calculus Operation: L ureteroscopic laser lithotripsy and JJ stent insertion Findings: L distal ureteral calculus Post-Operative Diagnosis: Same as Pre-op Anesthesiologist/SHAKER WASHER: Oscar Mena Anesthesia: General Specimens Removed: L ureteral calculi Estimated Blood Loss (mls): 0 Drains & Tubes with Location: 6 fr 24 cm L JJ stent Operative Report Dictated: Yes
[2020-03-01] MEDS ORDERED: EPHEDRINE SULFATE/0.9% NACL/PF 50 MG/10 ML SYRINGE NR ONE (12:46)
[2020-03-01] MEDS ORDERED: MIDAZOLAM HCL 2 MG/2 ML SINGLE DOSE VIAL ONE (12:47)
[2020-03-01] MEDS ORDERED: PROPOFOL 20 ML ONE (12:47)
[2020-03-01] MEDS ORDERED: ceFAZolin 2 GRAM PREMIX BAG IVPB ONE (13:10)
[2020-03-01] MEDS ORDERED: ONDANSETRON 4 MG/2 ML VIAL IVPUSH PRN (14:06)
[2020-03-01] MEDS ORDERED: oxyCODONE HCL 5 MG TABLET PO PRN ×2 (14:06)
[2020-03-01] MEDS ORDERED: LACTATED RINGERS SOLUTION 1,000 ML IV SCH (14:15)
--- NOTE | 2020-03-01 14:28 | OP ---
DATE OF OPERATION: 03/01/2020 PREOPERATIVE DIAGNOSIS: Left ureteral and left renal calculi. POSTOPERATIVE DIAGNOSIS: Left ureteral and left renal calculi. PROCEDURE: Left ureteroscopic laser lithotripsy, left double-J stent insertion. SURGEON: Chato Crowe MD JACKET CHANGER: None. ANESTHESIA: General via laryngeal mask. ANESTHESIOLOGIST: HUMZA Fu SPECIMENS: Left ureteral calculi. CULTURES: None. DRAINS: A 6-Malagasy 24-cm left double-J stent. ESTIMATED BLOOD LOSS: None. COMPLICATION: None. DESCRIPTION OF PROCEDURE: The patient was brought into the operating room, placed on the operating table in the supine position. After administration of general anesthesia via laryngeal mask, intravenous antibiotics were administered and sequential compression devices were placed. Patient was placed in the dorsal lithotomy position and the vagina and perineum were prepped and draped in usual sterile manner. A 22-Malagasy cystoscope was inserted into the bladder with the obturator in place. The obturator was removed. Urine was evacuated. Cystoscopy was performed. This demonstrated no foreign bodies, tumors, or stones, some inflammation. Both ureteral orifices were in their usual location with clear efflux bilaterally. Left ureteral orifice was then cannulated with a 0.038 guidewire advanced to the level of the left renal pelvis under fluoroscopic and direct visual guidance. Under fluoroscopy a large 1 cm radiopaque left lower pole renal calculus was visualized. The left ureteral stone could not be visualized clearly. The guidewire was left coiled in the renal pelvis. Dual-lumen catheter was inserted. Retrograde pyelogram was done demonstrating the guidewire to be coiled in the mildly dilated left renal pelvis. Dual-lumen catheter was removed. Cystoscope was removed, bladder emptied and the semirigid ureteroscope was inserted into the left ureter alongside the guidewire where in the distal ureter a 6-mm stone was visualized. A 325-micron laser fiber was inserted. Laser lithotripsy was done until the stone was fragmented into several small pieces which were basketed and removed. A retrograde pyelogram after backloading the cystoscope demonstrated no extravasation of contrast, no additional stones in the ureter, left lower pole renal calculus still in place. Guidewire was left coiled in the renal pelvis and a 6-Malagasy 24-cm left double-J stent was inserted over the guidewire under direct visual and fluoroscopic guidance, leaving 1 coil in the renal pelvis and 1 coil in the bladder. The bladder was emptied. Cystoscope removed. The stent was secured to the thigh with a suture and a Tegaderm. She tolerated the procedure well. CHATO CROWE M.D. [id number]
[2020-03-01 16:45] VITALS: BP 111/64; PULSE 97; TEMP 97.5
--- NOTE | 2020-03-03 16:40 | PATH ---
Surgical Pathology Report Patient Name: ANTONI PRATT [facility]. Rec. #: [id number] /Age/Gender: 1960 (Age: 60) / F Account: [id number] Location: U SURGICAL Taken: 03/01/2020 Received: 03/02/2020 Reported: 03/03/2020 Physicians: Chato Apple M.D. Specimen(s) Received STONE, LEFT URETER Clinical History Calculus of ureter, left Final Diagnosis LEFT URETER STONE, REMOVAL: CONSISTENT WITH URETER CALCULI. SENT FOR CHEMICAL ANALYSIS. Electronically Signed Justin Hayes M.D. Gross Description Received fresh labeled "stone left ureter," are 2 gomez-yanes, irregular calculi measuring 0.2 and 0.4 cm in greatest dimension. The specimen is sent for chemical analysis. /03/02/2020 saudi/03/02/2020
[2020-03-14 15:54] LABS: CA OXALATE MONOHYDR. 20; SIZE 4X3 mm
== END 2020-03-01 16:40 | disposition home or self-care (01) ==
LOC: JASU-SURG 05:09
PROVIDERS: ATTEND Urology
PROC: 0TC48ZZ Extirpation of Matter from Left Kidney Pelvis, Via Natural or Artificial Opening Endoscopic (ICD-10-PCS; principal; 2020-03-01 14:00)
PROC: 0TC78ZZ Extirpation of Matter from Left Ureter, Via Natural or Artificial Opening Endoscopic (ICD-10-PCS; 2020-03-01 14:00)
PROC: 0T778DZ Dilation of Left Ureter with Intraluminal Device, Via Natural or Artificial Opening Endoscopic (ICD-10-PCS; 2020-03-01 14:00)
DX: N20.0 Calculus of kidney (principal); N20.1 Calculus of ureter; E11.9 Type 2 diabetes mellitus without complications; I10 Essential (primary) hypertension; J44.9 Chronic obstructive pulmonary disease, unspecified
CPT/HCPCS: 36415; 76000-TC-FY; 82360; 82962; 88300-TC; 94760

== ENCOUNTER 2020-04-13 04:15 | Day surgery (SDC) | payer OTHER ==
[2020-04-12 10:18] VITALS: BMI 26.4
--- OUTSIDE RECORDS SUMMARY | 2020-04-13 04:19 | XMS ---
:1960 Author Organization [facility] Support Name Relationship Address Phone RE, RETIRED Unavailable Unavailable Unavailable RE Unavailable Unavailable Unavailable GAVIN PRATT [address] [phone] [place] [address] GAVIN PRATT Spouse [address] [phone] [place] [address] Re-disclosure Warning The records that you are about to access may contain information from federally- assisted alcohol or drug abuse programs. If such information is present, then the following federally mandated warning applies: This information has been disclosed to you from records protected by federal confidentiality rules (42 CFR part 2). The federal rules prohibit you from making any further disclosure of this information unless further disclosure is expressly permitted by the written consent of the person to whom it pertains or as otherwise permitted by 42 CFR part 2. A general authorization for the release of medical or other information is NOT sufficient for this purpose. The Federal rules restrict any use of the information to criminally investigate or prosecute any alcohol or drug abuse patient.The records that you are about to access may contain highly sensitive health information, the redisclosure of which is protected by Article 27-F of the [facility] Public Health law. If you continue you may haveaccess to information: Regarding HIV / AIDS; Provided by facilities licensed or operated by the [facility] Office of Mental Health; or Provided by the [facility] Office for People With Developmental Disabilities. If such information is present, then the following [facility] mandated warning applies: This information has been disclosed to you from confidential records which are protected by state law. State law prohibits you from making any further disclosure of this information without the specific written consent of the person to whom it pertains, or as otherwise permitted by law. Any unauthorized further disclosure in violation of state law may result in a fine or fdc sentence or both. A general authorization for the release of medical or other information is NOT sufficient authorization for further disclosure. Insurance Providers Payer name Policy type Policy ID Covered Covered libertarian's Policy P sherice / Coverage libertarian ID relationship to [employer] Inf ormation type ordaz [place] [id number] 2 HEALTH PLANS MEDICARE [id number] SP [id number] MEDICARE [id number] SP [id number] [place] [id number] 2 [employer]ALTH PLANS [place] [id number] S [id number] 1 HEALTH PLANS Results ID Date Data Source [id number] 04/08/2020 09:05:00 AM EDT [facility] Name Value Range Interpretation Description Data Sup porting Code Source(s) Document(s ) SARS [facility] coronavirus 2 RNA This lab was ordered by [facility] and reported by [facility]. ID Date Data Source [id number] 02/25/2020 04:00:00 PM EDT [facility] Name Value Range Interpretation Description Data Sup porting Code Source(s) Document(s ) SARS [facility] coronavirus 2 RNA This lab was ordered by [facility] and reported by [facility]. Procedure
--- NOTE | 2020-04-13 07:42 | HP ---
History & Physical Update - History History: No Change - Physical Physical: No Change - Assessment Assessment: No Change - Plan Plan: No Change
--- NOTE | 2020-04-13 07:44 | OP ---
Operative Note - Note: Operative Date: 04/13/20 Pre-Operative Diagnosis: L renal calculus Operation: ESWL L Findings: radiopaque 1 cm L LP renal calculus Post-Operative Diagnosis: Same as Pre-op Surgeon: Chato Apple Anesthesiologist/CCIE: Georgiana Ramos Anesthesia: MAC Estimated Blood Loss (mls): 0 Operative Report Dictated: Yes
[2020-04-13] MEDS ORDERED: DEXAMETHASONE SOD PHOSPHATE 4 MG/1 ML VIAL ONE (07:45)
[2020-04-13] MEDS ORDERED: LIDOCAINE HCL/PF 2% SDV 5ML VIAL ONE (07:46)
[2020-04-13] MEDS ORDERED: GLYCOPYRROLATE 0.2 MG/1 ML VIAL ONE (07:46)
[2020-04-13] MEDS ORDERED: PROPOFOL 20 ML ONE ×3 (07:46)
[2020-04-13] MEDS ORDERED: MIDAZOLAM HCL 2 MG/2 ML SINGLE DOSE VIAL ONE (07:46)
--- NOTE | 2020-04-13 08:32 | OP ---
DATE OF OPERATION: 04/13/2020 PREOPERATIVE DIAGNOSIS: Left renal calculus. POSTOPERATIVE DIAGNOSIS: Left renal calculus. PROCEDURE: Extracorporeal shock wave lithotripsy left renal calculus. SURGEON: Chato Crowe MD MEDICAL STAFF PHYSICIAN: None. ANESTHESIA: IV sedation. ANESTHESIOLOGIST: Georgiana Ramos MD SPECIMENS: None. CULTURES: None. DRAINS: None. ESTIMATED BLOOD LOSS: None. COMPLICATION: None. PROCEDURE: Patient was brought into the operating room, placed on the operating table in the supine position. After the administration of intravenous sedation, patient was positioned over the treatment head and under fluoroscopy and ultrasound guidance a 1 cm left lower pole renal calculus was identified, targeted and delivered 2500 shocks at maximum kilovoltage with moderate fragmentation. She tolerated the procedure well, was transferred to the recovery room in stable condition. Will follow up for KUB to check for residual stone fragments. CHATO CROWE M.D. [id number]
[2020-04-13 11:10] VITALS: BP 126/70; PULSE 66; TEMP 97.4
== END 2020-04-13 11:15 | disposition home or self-care (01) ==
LOC: JASU-SURG 04:15
PROVIDERS: ATTEND Urology
PROC: 0TF4XZZ Fragmentation in Left Kidney Pelvis, External Approach (ICD-10-PCS; principal; 2020-04-13 08:00)
DX: N20.0 Calculus of kidney (principal); E11.9 Type 2 diabetes mellitus without complications; I10 Essential (primary) hypertension; Z79.84 Long term (current) use of oral hypoglycemic drugs
CPT/HCPCS: 82962

== ENCOUNTER 2022-11-08 20:06 | Emergency (ER) | payer OTHER ==
[2022-11-08 20:17] VITALS: RESP 22; TEMP 97.8; BMI 28.9
[2022-11-08] MEDS ORDERED: FAMOTIDINE 20 MG TABLET PO ONE (20:48)
[2022-11-08] MEDS ORDERED: morphine SULFATE 4 MG/ML VIAL IVPUSH ONE (20:48)
[2022-11-08] MEDS ORDERED: ONDANSETRON 4 MG/2 ML VIAL ONE (20:50)
[2022-11-08] MEDS ORDERED: NITROGLYCERIN SUBLINGUAL 1/150 0.4 MG TAB SL ONE ×2 (20:53)
[2022-11-08] MEDS ORDERED: ONDANSETRON 4 MG/2 ML VIAL IVPUSH ONE (20:59)
[2022-11-08 21:10] LABS: BASO % 0.3 % (0-2.0); EOS % 1.4 % (0-4.5); HEMATOCRIT 39.8 % (32.4-45.2); HEMOGLOBIN 13.3 GM/dL (10.7-15.3); MCH 27.8 pg (25.7-33.7); MCHC 33.5 g/dl (32.0-36.0); MONO % 7.6 % (3.8-10.2); NEUT % 66.7 % (42.8-82.8); PLATELET COUNT 196 10^3/uL (134-434); RBC 4.79 M/mm3 (3.60-5.2); RDW 14.5 % (11.6-15.6); WHITE BLOOD COUNT 11.1 K/mm3 (4.0-10.0)
[2022-11-08 21:17] LABS: INR 0.97 (0.83-1.09); PROTHROMBIN TIME (PATIENT) 11.3 SEC (9.7-13.0)
[2022-11-08 21:20] LABS: ACTIVATED PTT 32.9 SECONDS (25.2-36.5)
[2022-11-08 21:22] LABS: EPI CELLS 12 /uL (0-25.1); HYALINE CASTS 0 /uL (0-3.1); PH,URINE 6.5 (5.0-8.0); URINE APPEARANCE CLEAR; URINE BACTERIA 373 /uL (0-1359); URINE BILIRUBIN NEGATIVE (NEGATIVE); URINE COLOR YELLOW; URINE GLUCOSE (UA) 3+ (NEGATIVE); URINE KETONE NEGATIVE (NEGATIVE); URINE LEUK ESTERASE 1+ (NEGATIVE); URINE NITRITE NEGATIVE (NEGATIVE); URINE PROTEIN 1+ (NEGATIVE); URINE RBC 18 /uL (0-23.9); URINE WBC 35 /uL (0-25.8)
[2022-11-08 22:28] LABS: POTASSIUM 4.3 mmol/L (3.5-5.1)
[2022-11-08 22:30] LABS: CALCIUM 9.4 mg/dL (8.5-10.1)
[2022-11-08 22:31] LABS: ALBUMIN 3.7 g/dl (3.4-5.0); BLOOD UREA NITROGEN 17.9 mg/dL (7-18); MAGNESIUM 2.2 mg/dL (1.8-2.4)
[2022-11-08 22:34] LABS: CREATININE 0.9 mg/dL (0.55-1.3)
[2022-11-08 22:35] LABS: TOT PROT 7.2 g/dl (6.4-8.2)
[2022-11-08 22:36] LABS: BILIRUBIN,TOTAL 0.5 mg/dL (0.2-1)
[2022-11-08 22:39] LABS: N-TERMINAL BNP 669.4 pg/ml (5-125)
[2022-11-08 22:48] VITALS: BP 152/67; PULSE 98
[2022-11-08] MEDS ORDERED: morphine CARPU-JECT 4 MG/1 ML DISP.SYRIN IVPUSH ONE (22:48)
[2022-11-08] MEDS ORDERED: HEPARIN NA (PORCINE) 5,000 UNITS/ML 1ML VIAL IVPUSH PRN ×4 (22:48→22:59)
[2022-11-08] MEDS ORDERED: HEPARIN NA (PORCINE) 5,000 UNITS/ML 1ML VIAL IVPUSH ONE (22:48)
[2022-11-08] MEDS ORDERED: NITROGLYCERIN 2% OINTMENT - 1GM PACKET TD ONE ×2 (22:48→22:50)
[2022-11-08] MEDS ORDERED: ASPIRIN 81 MG CHEWABLE TABLETS PO ONE (22:48)
[2022-11-08] MEDS ORDERED: morphine SULFATE 4 MG/ML VIAL ONE (22:50)
[2022-11-08] MEDS ORDERED: ASPIRIN 81 MG CHEWABLE TABLETS ONE (22:50)
[2022-11-08] MEDS ORDERED: HEPARIN INFUSION - 25,000 UNITS/500 ML INFUS.BAG IVPB SCH (23:00)
[2022-11-08] MEDS ORDERED: HEPARIN NA (PORCINE) 5,000 UNITS/ML 1ML VIAL ONE (23:30)
[2022-11-08] MEDS ORDERED: HEPARIN - 25,000 UNIT in SODIUM CHLORIDE 495 ML IV SCH (23:30)
== END 2022-11-09 00:06 | disposition short-term general hospital (02) ==
LOC: JER 20:06
PROC: 3E03329 Introduction of Other Anti-infective into Peripheral Vein, Percutaneous Approach (ICD-10-PCS; principal; 2022-11-08)
PROC: 3E033GC Introduction of Other Therapeutic Substance into Peripheral Vein, Percutaneous Approach (ICD-10-PCS; 2022-11-08)
PROC: 3E033GC Introduction of Other Therapeutic Substance into Peripheral Vein, Percutaneous Approach (ICD-10-PCS; 2022-11-08)
PROC: 3E033GC Introduction of Other Therapeutic Substance into Peripheral Vein, Percutaneous Approach (ICD-10-PCS; 2022-11-08)
DX: R07.89 Other chest pain (principal); R06.02 Shortness of breath; R11.0 Nausea; I21.4 Non-ST elevation (NSTEMI) myocardial infarction
CPT/HCPCS: 0241U-QW; 36415; 71045-TC-FY; 71275-TC; 80053; 81003; 83735; 83880; 84484; 85025; 85379; 85610; 85730; 93005; 93010; 99291; 99292; J1644

== ENCOUNTER 2023-12-06 16:54 | Emergency (ER) | payer OTHER ==
[2023-12-06 17:07] VITALS: BP 150/71; PULSE 87; RESP 17; TEMP 98.5; BMI 26.2
[2023-12-06] MEDS ORDERED: LIDOCAINE VISCOUS 2% ORAL/TOP 15 ML UNIT-DOSE CUP ONE (18:32)
[2023-12-06] MEDS ORDERED: LIDOCAINE HCL 2% JELLY 6 ML TP ONE (18:33)
[2023-12-06] MEDS: LIDOCAINE HCL 2% JELLY (5 ML/TUBE) TP ONE (18:48)
== END 2023-12-06 19:13 | disposition home or self-care (01) ==
LOC: JER 16:54
DX: K60.2 Anal fissure, unspecified (principal); K59.00 Constipation, unspecified; L22 Diaper dermatitis
CPT/HCPCS: 74018-TC-FY; 99283-25